=== PATIENT | male | born 1970 | race Caucasian/White ===

== ENCOUNTER 2023-09-24 05:04 | Observation (INO) ==
--- NOTE | 2023-08-30 15:15 | PAT Medication Instructions ---
Medication Instructions Date of Service August 30, 2023 Home Medications ascorbic acid (vitamin C) 1,000 mg tablet (Vitamin C) 1 g PO DAILY multivitamin 1 tab PO DAILY acetaminophen 500 mg tablet (Tylenol Extra Strength) 500 mg PO Q6H PRN Pain MEDICATION INSTRUCTIONS: DO NOT take the morning of surgery ascorbic acid (vitamin C) 1,000 mg tablet (Vitamin C) 1 g PO DAILY multivitamin 1 tab PO DAILY Take morning of surgery With a small sip of water, OTHERWISE NOTHING TO EAT OR DRINK AFTER MIDNIGHT: acetaminophen 500 mg tablet (Tylenol Extra Strength) 500 mg PO Q6H PRN Pain Take evening before surgery acetaminophen 500 mg tablet (Tylenol Extra Strength) 500 mg PO Q6H PRN Pain Other Notes If you have any questions please call us at [phone] or [phone] or [phone] or [phone]
--- NOTE | 2023-09-06 10:30 | Anesthesiology Consultation ---
Date of Service September 06, 2023 Assessment & Plan (1) Encounter for pre-operative examination: - Infectious disease screening: Per assessment on 09/06/23: No known infectious disease contacts or current infectious disease symptoms. No noted recent Covid positive test result. - Outpatient joint assessment: Pt currently scheduled for inpatient pathway. If surgeon requests review for outpatient joint pathway, patient is an acceptable candidate for outpatient joint program from anesthesia standpoint pending surgeon's office assessment that patient is motivated, has good support and completes [facility] preop requirements. - Heavy ETOH use: 6 beers/day (nighttime), no morning ETOH per patient Chart Review Chart Review: Acceptable Risk for Surgery and Patient seen in Pre Admission Testing Teaching & Discussion Pre-Anesthesia Teaching/Discussion Notes: Instructed NPO after midnight before surgery,except medications with 15 cc of water. Medication instructions provided according to the PAT guidelines. History Surgery Operation Date: 09/24/23 08:00 Proposed Procedures p Left Total Hip Arthroplasty Anterior - Roland Guerrero DO Height/Weight Height: 5 ft 9 in Weight: 106.5 kg Allergies Allergy/AdvReac Type Severity Reaction Status Date / Time meperidine Allergy Unknown Dyspnea Verified 09/03/23 11:32 Medications Home Medications Medication Instructions Recorded Confirmed Last Taken acetaminophen 500 mg tablet 500 mg PO Q6H PRN Pain 05/05/21 08/30/23 05/05/21 07:00 (Tylenol Extra Strength) 1000 mg ascorbic acid (vitamin C) 1,000 mg 1 g PO DAILY 05/05/21 08/30/23 05/04/21 tablet (Vitamin C) multivitamin 1 tab PO DAILY 05/05/21 08/30/23 05/04/21 Past Medical History Medical History Diverticular disease no recent issues History of COVID-11 May 2021- resolved History of hypertension no longer on meds Exercise / Class Metabolic Activity II 4-5 Yardwork/Stairs/Walk up hill (one FS (no CP, no SOB)) Past Family History Family History Other No family history of adverse response to anesthesia Past Surgical History Surgical History History of ankle surgery right with hardware History of colonoscopy History of pyloric stenosis as a child with surgical correction History of surgery on lower extremity left leg with hardware History of tooth extraction Hx of umbilical hernia repair Past Anesthesia History No Hx of Anesthesia Complications * Daughter: unclear perioperative complications ("didn't do procedure" in the past but unsure why/no further details. He states she has had other surgeries/anesthesia without simliar issues. No personal anesthesia/surgery issues for patient personally. History of PONV No Hx of PONV and No Hx of Motion Sickness Social History Smoking Status: Former smoker Do You Dip or Chew Tobacco: Yes (1 can/day- advised NPO status) Smoking End Date: Quit approximately 15 years ago Hx Alcohol Use: Yes (6 pack beer per night) Alcohol type: beer alcohol intake frequency: 3 or more drinks per day (6 beers/day (nighttime), no morning ETOH) Hx Substance Use: No substance use type: does not use Review of Systems Patient denies chest pain, shortness of breath, dyspnea on exertion, fever, chills, cough, wheezing, palpitations. Physical Exam Vital Signs VITALS BP 143/88 P 68 TEMP 98.3 SP02 100%RA RESP 18 PHYSICAL Full cervical extension range of motion. Full TMJ range of motion. TMD 3.5 finger breaths Mallampati Score 1 Dentition: several missing sides/molars Lungs: clear throughout to auscultation Cardiac: regular rate and rhythm, no murmurs noted Spine: normal Carotid arteries: negative bruit Extremities: no LE edema Lab Results Anesthesia Preop Results Results Anesthesia Widget: WBC 5.37 K/ul (4.8-10.8) 09/06/23 Hgb 15.3 g/dl (14.0-18.0) 09/06/23 Hct 45.1 % (42.0-52.0) 09/06/23 Plt 265 K/uL (130-400) 09/06/23 Na 137 mmol/L (136-145) 09/06/23 K 4.5 mmol/L (3.5-5.1) 09/06/23 Cl 103 mmol/L (98-107) 09/06/23 CO2 27 mmol/L (21-32) 09/06/23 BUN 16 mg/dl (6-23) 09/06/23 Creat 0.96 mg/dl (0.6-1.4) 09/06/23 Glucose Level 97 mg/dl (70-99(Fasting)) 09/06/23 PT 10.8 Seconds (9.0-12.0) 09/06/23 PTT 30 Seconds (21-31) 09/06/23 INR 1.0 (0.9-1.1) 09/06/23 Blood Type O Positive 09/06/23 Antibody Screen NEGATIVE 09/06/23 Testing Electrocardiogram Date: 05/05/23 SB at 59bpm. "Otherwise normal ECG" Chest X-Ray Date: 09/06/23 FINDINGS: No lines and tubes are seen. Calcified aortic knob is seen. The lungs are clear. No evidence of pleural effusion or pneumothorax. IMPRESSION: No acute chest disease.
--- NOTE | 2023-09-22 07:29 | History & Physical Report ---
Date of Service September 22, 2023 Assessment & Plan (1) Osteoarthritis of left hip: We will proceed with a left anterior total of arthroplasty. Postoperatively he will be started on aspirin for DVT prophylaxis and kept overnight in the hospital for postop medical management. [facility] plans [facility]. History of Present Illness Chief Complaint: Osteoarthritis of the left hip. Primary Care Provider: Dorothea Solis PA-C Elias is a pleasant 53-year-old male who has been dealing with chronic increasing left hip pain. He has been seeing another provider. X-rays and clinical examination been diagnostic for advanced osteoarthritis of the left hip. After failing extensive conservative treatment, he has elected proceed with a left anterior total of arthroplasty. Allergies Allergy/AdvReac Type Severity Reaction Status Date / Time meperidine Allergy Unknown Dyspnea Verified 09/03/23 11:32 Home Medications Medication Instructions Recorded Confirmed Type acetaminophen 500 mg tablet 500 mg PO Q6H PRN Pain 05/05/21 08/30/23 History (Tylenol Extra Strength) ascorbic acid (vitamin C) 1,000 mg 1 g PO DAILY 05/05/21 08/30/23 History tablet (Vitamin C) multivitamin 1 tab PO DAILY 05/05/21 08/30/23 History Past Med/Surg History Medical History Diverticular disease no recent issues History of COVID-11 May 2021- resolved History of hypertension no longer on meds Surgical History History of ankle surgery right with hardware History of surgery on lower extremity left leg with hardware History of colonoscopy Hx of umbilical hernia repair History of tooth extraction History of pyloric stenosis as a child with surgical correction Family History Other No family history of adverse response to anesthesia Social History Smoking Status: Former smoker Tobacco Type: Smokeless Tobacco (Dip or Chew) Smoking End Date: Quit approximately 15 years ago; Second Hand Exposure: No; Do You Dip or Chew Tobacco: Yes (1 can/day- advised NPO status); Tobacco Cessation Education Requested by Patient: No Hx Alcohol Use: Yes (6 pack beer per night) Alcohol type: beer Hx Substance Use: No Preferred Language: Faroese Communication Ability: Effective Nursing Faculty Required: No Beliefs That Will Affect Care: None Current Living Situation: Family Other Information That Helps Us Care for You: No Feels Safe at Home: Yes Safety Concerns: Feels Safe At This Time Assistive Devices: Glasses Review of Systems All systems reviewed & are unremarkable except as noted in HPI & below. Physical Exam Physical examination of the left hip shows decreased range of motion. He has pain with forced internal and external rotation. Most of his pain is located in his groin.. Constitutional WD/WN, vitals as above Eyes PERRL, conjunctivae normal, anicteric sclerae ENMT external ear and nose normal, oropharynx normal Neck trachea midline, no thyromegaly Respiratory normal respiratory effort Cardiovascular RRR, no murmur, no edema Gastrointestinal (Abdomen) normal bowel sounds, soft, nontender, no hepatosplenomegaly Psychiatric A+Ox3, euthymic affect Results & Data Results & Data Laboratory Results . Diagnostic Findings X-rays of the left hip show advanced osteoarthritis with joint space narrowing, osteophyte formation, and [id number] articulation. PG Care Time/CCT Total # of Minutes Spent Total Time Spent with Patient: Total time spent is greater than 50% in coordination of care (as documented) at patient's floor/unit and/or counseling patient: Coding Level of Care Code None Diagnoses Osteoarthritis of left hip M16.12
[2023-09-24] MEDS: LR 500ML BOLUS, THEN 15ML/HR IV SCH (05:51)
[2023-09-24] MEDS: GABAPENTIN 600 MG DOSE PO SCH (05:52)
[2023-09-24] MEDS: dexAMETHasone**PF** 10 MG/ML VIAL IV SCH (05:52)
[2023-09-24] MEDS: ACETAMINOPHEN 500 MG TAB PO SCH ×2 (05:52→13:40)
[2023-09-24] MEDS: LR 60ML/HR IV SCH (05:52)
[2023-09-24] MEDS: FAMOTIDINE 20 MG TAB PO SCH (05:52)
--- NOTE | 2023-09-24 06:15 | History & Physical Bridge Note ---
Date of Service September 24, 2023 History & Physical Bridge Note I have examined the patient, reviewed the History & Physical and in the interval since the performance of the History & Physical I have noted the following changes of clinical significance: no changes noted
[2023-09-24] MEDS ORDERED: BUPIVACAINE 0.5 % 5 MG/1 ML PF 10ML VIAL ONE (06:19)
[2023-09-24] MEDS ORDERED: fentaNYL citrate PF 100 MCG/2 ML VIAL ONE (06:42)
[2023-09-24] MEDS ORDERED: MIDAZOLAM HCL 1 MG/ML 2ML VIAL ONE (06:42)
[2023-09-24] MEDS: TRANEXAMIC ACID 1,000 MG **IV Pre-op IV SCH (06:52)
[2023-09-24] MEDS ORDERED: fentaNYL citrate PF 100 MCG/2 ML VIAL IV PRN (07:09)
[2023-09-24] MEDS ORDERED: ONDANSETRON INJ 2 MG/ML 2 ML VIAL IV PRN ×2 (07:09→10:04)
[2023-09-24] MEDS ORDERED: ePHEDrine sulfate 50 MG/ML AMP IV PRN (07:09)
[2023-09-24] MEDS ORDERED: ATROPINE SULFATE 0.1 MG/ML 10ML SYR IV PRN (07:09)
[2023-09-24] MEDS ORDERED: PROMETHAZINE HCL 6.25 MG in SODIUM CHLORIDE 0.9% 50 ML IV PRN (07:09)
[2023-09-24] MEDS ORDERED: PROPOFOL IV EMULSION 10 MG/ML 20 ML VIAL IV ONE (07:55)
[2023-09-24] MEDS: ceFAZolin 2000MG 2,000 MG/15 ML SYR IV SCH ×2 (07:59→16:00)
--- NOTE | 2023-09-24 08:09 | Operative Report ---
PG Post Operative Report Pre & Post Diagnosis Operation Date: 09/24/23 07:00 Pre-Op Diagnosis: Left Hip Degenerative Joint Disease Post-Op Diagnosis: Left Hip Degenerative Joint Disease I identified the patient and participated in the time-out.: Yes Procedure Operation Date: 09/24/23 07:00 Actual Procedures p Left Anterior Total Hip Arthroplasty(Left) - Roland Guerrero DO Surgeon Roland Guerrero DO Integration Lead Roland Dickson PA-C Estimated Blood Loss 200 Findings Consistent with Post-Op Diagnosis Specimens Left femoral head Description of Procedure Implants used I used a ZimmerBiomet total hip arthroplasty system with a size 0 standard offset Avenir Complete stem, a 50 mm G7 cup with a 25mm screw, an E1 polyethylen e liner, a 36 mm ceramic head with a +3.5 neck. Elias arrived at the hospital for the above procedure. He was seen in the preoperative holding area and the operative extremity was identified and signed. He was given a spinal anesthetic, a preoperative antibiotic, and TXA. He was then taken back to the operating room and laid on the table in the supine position. He was given basic sedation. The operative leg was secured to a Puristst leg positioner. The hip was then prepped and draped in sterile fashion. A timeout was done and the patient and the operative extremity was properly identified. An anterior approach was used. Dissection was taken down through the fascia and the tensor muscle belly was retracted laterally and the rectus was retracted medially. The circumflex vessels were identified and ligated. The capsule was then incised and tagged for later repair. The femoral neck was then cut and the femoral head was removed. The acetabulum was exposed. Time was spent doing a complete circumferential labral release. Sequential reaming of the acetabulum up to a size 50 reamer was done. Final reamings were done under fluoroscopy to ensure appropriate version. A Biomet 50 mm G7 cup was then impacted into place. A single 25 mm screw was placed. The E1 polyethylene liner was then snapped into place. Surrounding soft tissues were then injected with 100 cc of an orthopedic pain control cocktail. The proximal femur was then exposed. Sequential broaching up to a size 0 broach was done. Off that broach a size 36 head with a +3.5 neck was trialed. The hip was reduced and fluoroscopic images showed anatomic alignment of the implants in acceptable length. The broach was removed. The final size 0 standard offset Avenir Complete stem was then impacted into place. A ceramic 36 mm head with a +3.5 neck was then impacted onto the stem and the hip was reduced. Final fluoroscopic images showed anatomic alignment of the hip. The capsule was then closed with #1 Vicryl suture. A dilute betadyne lavage was then done for 3 minutes. The joint was then irrigated with normal saline solution. The fascia was closed with #1 PDS suture. Skin was closed with 2-0 Vicryl, otilia, and a Silverlon dressing. He was then transferred to a hospital bed and taken to the post anesthesia care unit in stable condition. He tolerated the procedure well. Roland Dickson PA-C, was present for the entire procedure. He was critical for patient positioning, prepping, draping, retraction exposure, wound closure and application of sterile dressing. I attest to the content of the Intraoperative Record and any orders documented therein. Any exceptions are noted below.
[2023-09-24] MEDS: TRANEXAMIC ACID 1,000 MG **IV Intra-op IV SCH (08:10)
[2023-09-24] MEDS: ROPIV 0.5% 246mg, Ketorolac 30mg, EPINEPHrine 0.5mg in NSS INFIL SCH (08:11)
--- NOTE | 2023-09-24 09:02 | Fluoroscopy Report ---
INTRAOPERATIVE RADIOGRAPH CLINICAL HISTORY: Left hip arthroplasty. Fluoro time: 30 seconds Ka,r: 5.23 mGy FINDINGS: A single spot fluoroscopic image of the left hip is presented. A bipolar left hip arthropla sty is in near anatomic alignment. A single cortical lag screw transfixes the acetabular cup. There i s no evidence of acute fracture on this single spot fluoroscopic view. IMPRESSION: Intraoperative image from a left hip arthroplasty procedure as above. Electronically signed by: Julio César Garcia M.D. 09/24/2023 9:01 AM
--- NOTE | 2023-09-24 09:09 | XRay Report ---
AP PELVIS, CROSSTABLE LATERAL LEFT HIP History: Left total hip arthroplasty. Degenerative arthritis. Postop. FINDINGS: The patient is status post a left total hip arthroplasty. The hardware is intact. No fractu re or dislocation. Skin otilia are in place. IMPRESSION: Left total hip arthroplasty. No evidence for hardware complication. ACT 112: Negative or not required by law. Electronically signed by: Chinedu Diop M.D. 09/24/2023 9:08 AM
--- NOTE | 2023-09-24 09:26 | Anesthesiology Progress Note ---
Date of Service September 24, 2023 Anesthesia Post Procedure Vital Signs Vital Signs: Temp Pulse Pulse Resp BP Pulse Ox O2 Del Method 09/24/23 09:20 47 L 15 118/74 100 Room Air 09/24/23 09:10 47 L 12 106/72 100 Room Air 09/24/23 09:00 54 L 15 125/73 96 Room Air 09/24/23 08:50 54 L 17 112/73 100 Room Air 09/24/23 08:40 60 18 101/66 99 Room Air 09/24/23 08:34 36.0 C L 61 16 123/57 L 99 Oxymask 09/24/23 05:40 36.5 C 58 L 20 138/94 98 Room Air O2 Flow Rate 09/24/23 09:20 09/24/23 09:10 09/24/23 09:00 09/24/23 08:50 09/24/23 08:40 09/24/23 08:34 10 09/24/23 05:40 Pain Intensity Left Hip: Pain Intensity: 3 Transfer of Care Handoff Completed per policy Notes Mental Status: alert / awake / arousable Patient Amnestic to Procedure: Yes Nausea / Vomiting: adequately controlled Pain: adequately controlled Airway Patency, RR, SpO2: stable & adequate BP & HR: stable & adequate Hydration State: stable & adequate Neuraxial Anesthesia: was administered and sensory block is resolving Anesthetic Complications: no major complications apparent and Pt Satisfied with anesthetic care
[2023-09-24] MEDS ORDERED: NALOXONE HCL 0.4 MG/1 ML VIAL/CARP IV PRN (10:04)
[2023-09-24] MEDS ORDERED: bisacodyL 10 MG SUPP PR PRN (10:04)
[2023-09-24] MEDS ORDERED: MAGNESIUM HYDROXIDE SUSP 30 ML UDC PO PRN (10:04)
[2023-09-24] MEDS ORDERED: HYDROmorphone INJ 0.5 MG/0.5 ML SYR IV PRN (10:04)
[2023-09-24] MEDS ORDERED: METOCLOPRAMIDE HCL INJ 5 MG/ML 2 ML VIAL IV PRN (10:04)
[2023-09-24] MEDS: ORTHO JOINT ANESTHETIC ONE (10:06)
[2023-09-24] MEDS: SODIUM CHLORIDE 0.9% 1,000 ML IV SCH (10:06)
[2023-09-24] MEDS: ASPIRIN 81 MG ECTAB PO SCH (10:42)
[2023-09-24] MEDS: MULTIVITAMIN TAB PO SCH (10:42)
[2023-09-24] MEDS: DOCUSATE SODIUM 100 MG CAP PO SCH (10:42)
[2023-09-24] MEDS: KETOROLAC 30 MG/ML VIAL IV SCH (10:43)
[2023-09-24] MEDS: oxyCODONE HCL IR 5 MG TAB (IMMEDIATE RELEASE) PO PRN (13:53)
[2023-09-24] MEDS: SENNA 8.6 MG TAB PO SCH (19:42)
--- NOTE | 2023-09-25 07:28 | Orthopedic Progress Note ---
Date of Service September 25, 2023 Assessment & Plan (1) Status post left hip replacement: Overall he is doing very well. He is not having much pain in the left hip. He will be seen by physical therapy today for ambulation and range of motion exercises. He is on aspirin for DVT prophylaxis. He can be discharged home later today. He will follow-up with orthopedics in 2 weeks. Darya Griffin was seen and examined at bedside this morning. Overall is doing very well. He is not having much pain in the left hip. He has been up and ambulating to the bathroom. Has no complaints.. Review of Systems All systems reviewed & are unremarkable except as noted in HPI & below. Physical Exam On physical examination of the left hip, the dressing is clean and dry. His leg is out full extension. He has active dorsiflexion plantarflexion of his left ankle.. Results & Data Results & Data Laboratory Results . Diagnostic Findings Postoperative x-rays of the left hip show the prosthesis to be in anatomic al ignment without any evidence of fracture, desiccation, or loosening.. PG Care Time/CCT Total # of Minutes Spent Total Time Spent with Patient: Total time spent is greater than 50% in coordination of care (as documented) at patient's floor/unit and/or counseling patient: Coding Level of Care Code 22725 Post Operative Follow-Up Diagnoses Status post left hip replacement Z96.642
--- NOTE | 2023-09-25 07:29 | Discharge Summary ---
Date of Service September 25, 2023 Admission HPI (Per Admitting) Elias is a pleasant 53-year-old male who has been dealing with chronic increasing left hip pain. He has been seeing another provider. X-rays and clinical examination been diagnostic for advanced osteoarthritis of the left hip. After failing extensive conservative treatment, he has elected proceed with a left anterior total of arthroplasty. Admission Exam (Per Admitting) Physical examination of the left hip shows decreased range of motion. He has pain with forced internal and external rotation. Most of his pain is located in his groin.. Principal Diagnosis Same as "Discharge Diagnosis" noted below under Discharge Instructions. Discharge Exam On physical examination of the left hip, the dressing is clean and dry. His leg is out full extension. He has active dorsiflexion plantarflexion of his left ankle.. Discharge Data Procedures Performed Operation Date: 09/24/23 07:00 Actual Procedures p Left Anterior Total Hip Arthroplasty(Left) - Roland Guerrero DO Ordered Studies 09/24/23 FL hip LT 1V Routine Hospital Course (1) Status post left hip replacement: On September 24, 2023 Elias arrived at [facility] and underwent a left hip replacement without complication. He had a spinal anesthetic. Postoperatively he was started on aspirin for DVT prophylaxis and transferred to the general orthopedic floors. His hospital course was uneventful. On postop day #1, his vital signs were stable and his pain was well-controlled. He was able to participate well with physical therapy doing ambulation and range of motion exercises. He was then discharged home. He will follow-up with orthopedics in 2 weeks. PG Care Time/CCT Total # of Minutes Spent Total Time Spent with Patient: Total time spent is greater than 50% in coordination of care (as documented) at patient's floor/unit and/or counseling patient: Discharge Plan Discharge Items Patient Disposition: Home - Self-Care Reason For Visit: Left Hip Degenerative Joint Disease Discharge Diagnosis: Left hip replacement Activity: Per Instructions section Non-emergency contact: Surgeon Call non-emergency contact if: your wound has increased redness and your wound has increased drainage Follow-up/Referrals: Dorothea Solis PA-C [Primary Care Provider] - Diet: Regular Addtl Attending Provider Instructions: Activity and Therapy Recommendations: * If you are using [facility] then therapy will be provided at your home until they feel you have accomplished all of your goals. * If you are using [facility] then Physical Therapy will be provided until they feel you are ready to start Outpatient Physical Therapy. * If you are not using home therapy then Outpatient Physical Therapy should start about 3-5 days from your day of surgery. Therapy will last about 6-10 weeks * You were shown a series of exercises in the hospital. Do these exercises three times each day including the exercises you were shown in physical therapy. * Get up and walk several times each day.~ For the first four weeks, try not to stand or walk for more than one hour at a time. If you do stand or walk for more than one hour, you will not hurt anything, but your leg will likely swell.~~ * As you feel comfortable, you may change from the walker or crutches to a cane and~then to independent walking. Medications: * Narcotic You will likely be sent home from the hospital with a prescription for the narcotic pain medication that worked best throughout your stay. * Cefadroxil -take the antibiotic twice a day for 10 days to help prevent infection. * Aspirin Most patients will be required to take Aspirin 81mg twice a day for 6 weeks after surgery. This is obtained [id number] and a prescription is not necessary. * Other medications may be prescribed for specific circumstances. If you have any questions, please call the office at . * Resume previous home medications unless otherwise instructed TEDs/Elastic Stockings: The white elastic stockings help limit swelling and prevent blood clots from forming in your legs. The more you wear them, the more they work. Wear them for six weeks. Dressing Care: Leave the Silverlon dressing in place for 7 days. After 7 days you may remove the dressing. If the incision is not draining then you may leave the otilia open to air. If there is a little bit of drainage or if the otilia are getting stuck on your clothing then cover the incision with a dry dressing. The otilia will be removed at your 2 week follow-up appointment. Showering: You may shower with the Silverlon dressing in place. Do not let the shower spray hit the dressing directly. Pat the Silverlon dressing dry. If the dressing becomes wet underneath, then simply remove the dressing. Keep the incision dry until you are 7 days out from the day of surgery. After 7 days you may remove the Silverlon dressing and shower with the otilia exposed. Let soapy water run over the otilia and pat them dry. Do not scrub or soak the incision. Things To Watch For: * Drainage from the incision site that occurs more than one week after your surgery. * Increased redness at the incision site. * Fever above 102 degrees Fahrenheit. * Unusual chest pain or shortness of breath. * Call [facility] at with any of the above problems Follow-Up Visit: Follow-up with Dr. Guerrero's PA (Roland Dickson) 2-3 weeks after your day of surgery. He will remove your otilia and answer any questions. If you have any additional questions or concerns, Dr Guerrero is usually in the office at the same time and will be available An appointment was probably scheduled when you signed-up for surgery in the office. If you have any questions call Office Instructions: More detailed instructions as well as Frequently Asked Questions were provided in a folder by our office when you signed-up for surgery. Please review these instructions when you get home. If you have any further questions or concerns, please feel free to call the office at [phone] Pending Studies at Discharge: No Stand-Alone Forms: My [facility], Smoking Cessation Medications and DC Order Prescriptions: New oxycodone 5 mg Tablet 5 mg PO Q4H PRN (Reason: pain) Qty: 30 0RF cefadroxil 500 mg capsule 500 mg PO BID 10 Days Qty: 20 0RF aspirin 81 mg Tablet,Delayed Release (Dr/Ec) 81 mg PO BID 42 Days Qty: 0 0RF Continued multivitamin Tablet 1 tab PO DAILY ascorbic acid (vitamin C) [Vitamin C] 1,000 mg Tablet 1 g PO DAILY acetaminophen [Tylenol Extra Strength] 500 mg Tablet 500 mg PO Q6H PRN (Reason: Pain) Discharge Orders: Discharge Order (Routine); Ordered 09/25/23 Ordered By: Roland Guerrero Admission Data Admit Date/Time: 09/24/23 08:37 Attending Provider: Roland Guerrero Admit Provider: Roland Guerrero Primary Care Provider: Dorothea Solis
[2023-09-25] MEDS: dexAMETHasone 4 MG TAB PO SCH (08:24)
== END 2023-09-25 14:02 | disposition home or self-care (01) ==
LOC: 3E 05:04 → ASU 05:04